=== PATIENT | male | born 1955 | race Caucasian/White ===

== ENCOUNTER 2017-07-24 14:43 | Inpatient (IN) | payer OTHER ==
[~2017-07-24] VITALS: Ht 182.9 cm; Wt 68.0 kg
[2017-07-24 14:55] VITALS: BP 112/82
[2017-07-24] MEDS ORDERED: NAPROSYN500 MG PO (15:20)
[2017-07-24] MEDS ORDERED: KEFLEX500 M1 PO (15:24)
[2017-07-24 16:39] LABS: ABSOLUTE BASOPHILS 0.1 thou/uL (0.0-0.2); ABSOLUTE EOSINOPHILS 0.2 thou/uL (0.0-0.7); ABSOLUTE LYMPHOCYTES 2.8 thou/uL (0.8-5.3); ABSOLUTE MONOCYTES 1.2 thou/uL (0.0-1.2); ABSOLUTE NEUTROPHILS 7.4 thou/uL (1.6-8.1); BASOPHILS 0.7 %; EOSINOPHILS 1.4 %; HEMATOCRIT 47.4 % (42.0-52.0); HEMOGLOBIN 15.6 gm/dL (14.0-18.0); LYMPHOCYTES 24.1 %; MCHC 32.8 g/dL (28.0-37.0); MCV 94.6 fL (80.0-100.0); MONOCYTES 10.3 %; MPV 7.8 fl. (7.2-11.1); NUCLEATED RBCS 0 /100WBC; PLATELET COUNT* 465 thou/uL (150-400); POLYS 63.5 %; RBC 5.02 mil/uL (4.50-6.00); WBC 11.6 thou/uL (4.0-11.0)
[2017-07-24 16:49] LABS: ANION GAP 8 mmol/L (7-16); BUN 16 mg/dL (7-18); CHLORIDE 102 mmol/L (98-107); CO2 30 mmol/L (21-32); CREATININE 1.1 mg/dL (0.6-1.3); GLUCOSE 68 mg/dL (70-99); POTASSIUM 4.2 mmol/L (3.5-5.1); SODIUM 140 mmol/L (136-145)
[2017-07-24 16:52] LABS: APTT 28.5 Seconds (25.0-31.3); INR 1.1; PROTIME 10.4 Seconds (9.20-11.50)
[2017-07-24 17:05] LABS: ALBUMIN 3.8 g/dL (3.4-5.0); ALKALINE PHOSPHATASE 100 U/L (46-116); LIPASE 141 U/L (73-393); SGOT 31 U/L (15-37); SGPT 41 U/L (30-65); TOTAL BILIRUBIN 0.6 mg/dL (<0.1-1.0); TOTAL PROTEIN 8.8 g/dL (6.4-8.2); TROPONIN-I LEVEL <0.06 ng/mL (<0.06)
[2017-07-24 18:00] VITALS: BP 98/74
--- NOTE | 2017-07-24 18:05 | NUR ---
ER REPORT GIVEN PATIENT TO RM 233 PATIENT SETTLED IN BED VITAL SIGNS TAKED AND HEART MONITOR PLACED TELE STRIP DONE AND TO CHART NO C/O PAIN, RELIEVED AFTER PAIN MEDICATION IN ER GIVEN CALL LIGHT INSTRUCTION GIVEN AND IN REACH
--- NOTE | 2017-07-24 18:08 | NUR ---
IV REMAINS PATENT WITH CARDIZEM GTT INFUSING AT 10ML/HR AT TIME OF ADMISSION.
[2017-07-24 18:20] VITALS: BP 121/74
[2017-07-24 20:00] VITALS: BP 115/76
[2017-07-25] VITALS: BP 102/72
[2017-07-25 04:00] VITALS: BP 116/67
--- NOTE | 2017-07-25 05:44 | NUR ---
ASSUMED CARE OF PATIENT AT APPROXIMATELY 2200. PATIENT ON FLOOR PREVIOUS TO ASSUMING CARE. PATIENT ACCLIMATED TO ROOM AND CALL LIGHT ON FLOOR. PATIENT A/O X 4 AND VSS. UPON FIRST ASSESSMENT, PATIENT IN A GREAT DEAL OF PAIN (04/28). FENTANYL 50MCG Q4 HOURS GIVEN FOR PAIN IN FEET BILATERALLY. PATIENT STATES THAT PAIN IS WORSE THAN "PAIN". IT IS HIS NERVES BURNING AND ACHING INTERMITTENTLY. TOES ON BOTH FEET DISCOLORED AND JENKINS BITTEN. SEE PHOTOS IN CHART. PATIENT DENIES N/V/D AT THIS TIME. PATIENT IS HOMELESS AT THIS POINT IN TIME, CASE MANAGEMENT HAS BEEN CONSULTED. PATIENT EXTREMELY HUNGRY DURING OVERNIGHT SHIFT AND ON REGULAR DIET. PATIENT CONTINUES TO BE RUNNING AFIB ON HEART MONITOR. NURSING TO FOLLOW-UP NECESSARY. ALL FALL PRECAUTIONS IN PLACE, INCLUDING CALL LIGHT WITHIN REACH. WILL CONTINUE TO MONITOR CLOSELY.
[2017-07-25 08:22] VITALS: BP 131/76
[2017-07-25 12:00] VITALS: BP 103/67
--- NOTE | 2017-07-25 12:44 | NUR ---
ASSUMED RESPONSIBILITY OF PT THIS AM PT LAYING IN BED T/O MORNING C/O 10 OUT OF 10 PAIN TO BILAT TOES TRACKING NSR ON THE MONITOR CARDIZEM DISCOUNTED MED GIVEN TO PT TO GET PT STATES 'I DON'T NEED ANYTHING I HAVE EVERYTHING I NEED' PLAN TO DC THIS AFTERNOON LBM T-1 ALERT AND ORIENTED AND UP AD SARABJIT
--- NOTE | 2017-07-25 12:49 | NUR ---
CM SPOKE TO DR OMER AND HE INFORMS THAT THE PATIENT IS HOMELESS AND IN NEED OF RESOURCES FOR F/U. CM SPOKE TO THE PATIENT AND PROVIDED THE PATIENT WITH A LIST OF COMMUNITY RESOURCES FOR F/U CARE, PRESCRIPTION ASSISTANCE CARD, AND GOOD RX COUPON FOR CARDIZEM. PATIENT ACCEPTED THE RESOURCES AND STATES 'I HAVE ALL OF THE RESOURCES THAT I NEED AND I MET SOME PEOPLE WHO WILL HELP ME WHEN I LEAVE HERE'. CM WILL REMAIN AVAILABLE TO ASSIST AND FOLLOW NEEDED.
[2017-07-25] MEDS ORDERED: CARDIZEM30 MG PO (13:43)
[2017-07-25] MEDS ORDERED: CHILDREN'S ASPI81 M1 PO (13:44)
[2017-07-25 13:50] VITALS: BP 103/67
--- NOTE | 2017-07-25 14:12 | NUR ---
PT DISCHARGING HOME PT IS HOMELESS AND LIVES IN A TENT UPSET ABOUT NOT GETTING PAIN MEDICATION EXPLAINED TO PT REASONS PT HERE FOR FROSTBITE TO TOES BETADINE ON TOES WRAPPED IN GAUZE CARDIZEM SCRIPT GIVEN AND DISCOUNT CARD IV AND BALANCER DISCONTINUED
--- NOTE | 2017-07-25 14:36 | EKG ---
[place] [address] ELECTROCARDIOGRAM REPORT Name: FRANK HENLEY Room: [place] [address] DIS IN M.R.#: [id number] Admission: 07/24/17 Attend Phys: Bogdan Schwartz Discharge: 07/25/17 Date of : 57 Report #: [id number] THIS REPORT FOR: //name// [facility] ED Test Date: 2017-07-24 Test Time: 15:37:42 Pat Name: FRANK HENLEY Department: Room: [place] [address] Gender: M Waste Elimination: [place] : 1955 Requested By: Kraig Domingo Order Number: [id number] Ortiz MD: Wilian Brewer Measurements Intervals [place] Rate: 130 P: CO: QRS: 90 QRSD: 83 T: 73 QT: 302 QTc: 444 Interpretive Statements Atrial fibrillation Borderline right axis deviation Minimal ST depression, inferior leads Baseline wander in lead(s) V4 No previous ECG available for comparison Electronically Signed On 07-25-2017 14:36:34 CORRESPONDENCE REVIEW CLERK by Wilian Brewer [email or web address] <ELECTRONICALLY SIGNED> By: Wilian Brewer MD, [facility] 07/25/17 1436 1537 1537 Wilian Brewer MD, [facility] /EPI
--- NOTE | 2017-07-25 14:38 | EKG ---
[place] [address] ELECTROCARDIOGRAM REPORT Name: FRANK HENLEY Room: [place] [address] DIS IN M.R.#: [id number] Admission: 07/24/17 Attend Phys: Bogdan Schwartz Discharge: 07/25/17 Date of : 57 Report #: [id number] THIS REPORT FOR: //name// [facility] Test Date: 2017-07-24 Test Time: 18:53:42 Pat Name: FRANK HENLEY Department: Room: [facility] Gender: M Neighborhood Planner: : 1955 Requested By: Devora Tripathi Order Number: [id number] MD: Wilian Brewer Measurements Intervals [place] Rate: 82 P: 86 RI: 132 QRS: 89 QRSD: 87 T: 73 QT: 369 QTc: 431 Interpretive Statements Sinus rhythm Borderline right axis deviation No previous ECG available for comparison Electronically Signed On 07-25-2017 14:37:55 LINE HAUL OWNER OPERATOR by Wilian Brewer [email or web address] <ELECTRONICALLY SIGNED> By: Wilian Brewer MD, [facility] 07/25/17 1437 1853 185 Wilian Brewer MD, [facility] /EPI
--- NOTE | 2017-08-05 13:02 | CON ---
[address] [address] CONSULTATION Name: FRANK HENLEY Room: [address] IN M.Diana.#: [id number] Admission: 07/24/17 Attend Phys: Bogdan Schwartz Discharge: 07/25/17 Date of : 57 Report #: [id number] THIS REPORT FOR: //name// CC: FAM unknown [facility] Kraig Domingo DATE OF SERVICE: 07/25/2017 CHIEF COMPLAINT AND HISTORY OF PRESENT ILLNESS: A 62-year-old male, evaluated for frostbite to the right distal first and second toes. He is homeless, lives in a tent in [place], [place]. He insulates the tent with various layers of material and has a butane heater. He says the sheets came off his foot during the night, unbeknownst to him, and caused frostbite. He says the right first and second toes feel numb. Blood cultures are negative, pending. Chest x-ray negative for acute cardiopulmonary abnormality. He is on parenteral ceftriaxone with good tolerance, he received the flu vaccine. He takes fentanyl and acetaminophen for pain. LABORATORY DATA: WBC 11.6, RBC 5.02, hemoglobin 15.6, hematocrit 47.4, platelets 465. BUN 16, creatinine 1.1, glucose 68, albumin 3.8. PHYSICAL EXAMINATION: The right first and second toes have thick dry callus with underlying purple sanguineous fluid. There is low grade localized erythema to them. The toenails are dystrophic consistent with mycosis and are loose to the affected toes. He has faintly palpable dorsalis pedis and posterior tibial pulses bilaterally. He has dry scaly skin with tinea pedis. No other open lesions noted. The right first and second toes are nontender to the touch. The inflammatory process is localized to the toes with no proximal extension of cellulitis to the foot. I used scissors and forceps to debride the loose skin and I excised all the callus and drained the fluid from underneath the bulla. There is healthy tissue with no gangrene or deep penetrating wounds. The dystrophic toenails lifted off during the debridement from the underlying nail bed without active bleeding. The nail beds were clean and healthy. There is no exposed bone or tendon. IMPRESSION: Frostbite right first and second toes without gangrene. PLAN: I excised dermis and epidermis with scissors and forceps from the right first and second toes. I did not perform an excisional wound debridement, no subcutaneous tissue was excised. The underlying sanguineous fluid was drained and the toes were cleansed and dressed with Xeroform and sterile gauze. The patient to do the same dressing change 3 times a week and keep [place] [address] CONSULTATION Name: FRANK HENLEY Room: [address] IN .R.#: [id number] Admission: 07/24/17 Attend Phys: Bogdan Schwartz Discharge: 07/25/17 Date of : 57 Report #: [id number] with socks and appropriate clothing and sleepwear. He may follow up with me in my office in [place] next week. <ELECTRONICALLY SIGNED> By: Darrian Wright DPM 08/05/17 1302 1121 [id number] Wright DPM /nt
== END 2017-07-25 14:33 | disposition home or self-care (01) | DRG 923 ==
LOC: M.ERS 14:43 → M.TBA-ER 17:06 → M.2W 18:01
PROVIDERS: Physician Assistant; ADMIT Internal Medicine
PROC: 0HBMXZZ Excision of Right Foot Skin, External Approach (ICD-10-PCS; principal; 2017-07-25)
DX: T33.831A Superficial frostbite of right toe(s), initial encounter (principal); J43.9 Emphysema, unspecified; I48.91 Unspecified atrial fibrillation; Z86.73 Personal history of transient ischemic attack (TIA), and cerebral infarction without residual deficits; Z86.19 Personal history of other infectious and parasitic diseases; Z88.0 Allergy status to penicillin; Z88.6 Allergy status to analgesic agent; Z88.8 Allergy status to other drugs, medicaments and biological substances; Z59.0 Homelessness; X31.XXXA Exposure to excessive natural cold, initial encounter; Y93.89 Activity, other specified; Y92.89 Other specified places as the place of occurrence of the external cause; Y99.8 Other external cause status; Z23 Encounter for immunization